=== PATIENT | male | born 1955 | race Caucasian/White ===

== ENCOUNTER 2017-04-30 13:22 | Emergency (ER) | payer OTHER ==
[~2017-04-30] VITALS: Ht 177.8 cm; Wt 63.6 kg
[2017-04-30 13:29] VITALS: Ht 177.8 cm; Wt 63.6 kg
[2017-04-30] MEDS ORDERED: ACETAMINOPHEN 500 MG TAB PO STA (14:33)
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
--- NOTE | 2017-04-30 15:23 | RADRPT ---
PROCEDURE: XR Chest. CLINICAL INDICATION: Chest pain TECHNIQUE: AP view of the chest was performed. COMPARISON: None FINDINGS: The cardiomediastinal silhouette is within normal limits. The lungs are clear. No signs of pleural f luid or pneumothorax are seen. The osseous structures and soft tissues are unremarkable. IMPRESSION: No evidence for active cardiopulmonary disease. RPTAT: QQ .Sandra Brooks MD, MD Date Time Electronically viewed and signed by .Sandra Brooks MD, on 04/30/2017 15:22 .F/
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
[2017-04-30] MEDS ORDERED: IBUP-1542 PO (15:27)
== END 2017-04-30 15:30 | disposition home or self-care (01) ==
LOC: FTE 13:22
DX: S09.90XA Unspecified injury of head, initial encounter (principal); R51 Headache; R07.9 Chest pain, unspecified; V49.40XA Driver injured in collision with unspecified motor vehicles in traffic accident, initial encounter
CPT/HCPCS: 70450; 71010; 72125